=== PATIENT | female | born 1970 | race Caucasian/White ===

== ENCOUNTER 2018-11-26 15:01 | Emergency (ER) | payer OTHER ==
[2018-11-26 15:19] VITALS: BP 148/86; PULSE 76; RESP 18; TEMP 98.7
[2018-11-26] MEDS ORDERED: IBUPROFEN 600 MG TAB PO STA (15:39)
--- NOTE | 2018-11-26 15:46 | ED ---
General Adult HPI - General Chief complaint: Extremity Injury, Lower Stated complaint: Fall/knee pain-[facility] Time Seen by Provider: 11/26/18 15:12 Source: patient, RN notes reviewed Mode of arrival: wheelchair Limitations: no limitations - History of Present Illness Initial comments: 48-year-old female presents to the emergency department for a chief complaint of right knee injury. 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 Patient states she fell and injured her right knee. Patient states it is painful to walk on it difficult to extend. Patient states the pain is mostly in the posterior aspect of the knee as well as the lateral aspect. Patient denies any erythema or fevers. Denies hitting her head or any other injuries.Patient has no other complaints at this time including shortness of breath, chest pain, abdominal pain, nausea or vomiting, headache, or visual changes. - Related Data Home Medications Medication Instructions Recorded Confirmed Budesonide-Formot 160-4.5 Mcg 2 puff INHALATION RT-BID 05/17/15 05/17/15 [Symbicort 160-4.5 Mcg Inhaler] Dextroamphetamine/Amphetamine 30 mg PO BID 05/17/15 05/17/15 [Adderall] HYDROcodone/APAP 7.5-325MG [[place] 1 tab PO TID PRN 05/17/15 05/17/15 7.5-325] Omeprazole [PriLOSEC] 20 mg PO BID 05/17/15 05/17/15 Sertraline [Zoloft] 100 mg PO DAILY 05/17/15 05/17/15 Tiotropium [place] [Spiriva 1 puff INHALATION RT-DAILY 05/17/15 05/17/15 Respimat] Previous Rx's Medication Instructions Recorded ALPRAZolam [Xanax] 0.25 mg PO TID PRN #20 tab 05/20/15 Azithromycin [Zithromax] 500 mg PO DAILY #5 tab 05/20/15 Cefuroxime [Ceftin] 500 mg PO BID #14 tablet 05/20/15 Multivitamins, Thera [Multivitamin 1 each PO DAILY@1200 #30 tab 05/20/15 (formulary)] Nicotine 14Mg/24Hr Patch [Habitrol] 1 patch TRANSDERM DAILY #30 patch 05/20/15 predniSONE 10 mg PO DIRECTED #40 tab 05/20/15 Allergies Allergy/AdvReac Type Severity Reaction Status Date / Time ciprofloxacin [From Cipro] Allergy Unknown Verified 11/26/18 15:19 Review of Systems ROS Statement: Those systems with pertinent positive or pertinent negative responses have been documented in the HPI. ROS Other: All systems not noted in ROS Statement are negative. Past Medical History Past Medical History: Asthma Additional Past Medical History / Comment(s): Obesity, anxiety/depression, bronchial asthma, History of Any Multi-Drug Resistant Organisms: None Reported Past Surgical History: Breast Surgery, Tonsillectomy, Tubal Ligation Additional Past Surgical History / Comment(s): carpal tunnel Past Psychological History: Anxiety, Depression Smoking Status: Current every day smoker Past Alcohol Use History: None Reported Past Drug Use History: None Reported - Past Family History Father Family Medical History: Myocardial Infarction ([place]) General Exam Limitations: no limitations General appearance: alert, in no apparent distress Head exam: Present: atraumatic, normocephalic, normal inspection Eye exam: Present: normal appearance, PERRL, EOMI. Absent: scleral icterus, conjunctival injection, periorbital swelling ENT exam: Present: normal exam, mucous membranes moist Neck exam: Present: normal inspection, full ROM. Absent: tenderness, meningismus, lymphadenopathy Respiratory exam: Present: normal lung sounds bilaterally. Absent: respiratory distress, wheezes, rales, rhonchi, stridor Cardiovascular Exam: Present: regular rate, normal rhythm, normal heart sounds. Absent: systolic murmur, diastolic murmur, rubs, gallop, clicks Extremities exam: Present: tenderness (Generalized tenderness to the right knee), normal capillary refill (Capillary refill less than 2 seconds, DP pulse and PT pulses strong and Doppler), other (sensation is intact the right lower extremity without significant edema erythema or increased warmth. no abrasions, contusions, or lacerations present.). Absent: full ROM (Patient had 90 flexion of the right knee with full extension. Pain reduced with extension.), joint swelling, calf tenderness Neurological exam: Present: alert, oriented X3, CN II-XII intact Psychiatric exam: Present: normal affect, normal mood Course Vital Signs 11/26/18 15:16 Temperature 98.7 F Pulse Rate 76 Respiratory 18 Rate Blood Pressure 148/86 O2 Sat by Pulse 99 Oximetry - Reevaluation(s) Reevaluation #1: 11/26/18 15:44 Ice pack applied to the right knee Medical Decision Making - Medical Decision Making 48-year-old female presents to the emergency department for chief and of right knee pain after a fall earlier today at work. Patient unable to bear weight on the right knee at this time. Neurovascular status intact in the right lower extremity. No severe edema erythema or ecchymosis present. Patient has limited range of motion of the right knee to about 90 flexion with full extension. X- ray of the right knee is negative for fracture or dislocation. No evidence of joint effusion. However patient is unable to bear weight. Unfortunately I was not able to obtain a knee immobilizer as there are none in the emergency department or on any force of the hospital. No knee immobilizers and stores. Therefore patient was wrapped with an Jack wrap and given a prescription for a knee immobilizer and crutches and follow-up to orthopedics. Patient will return here if she has any worsening symptoms. Disposition Clinical Impression: Right knee injury Disposition: HOME SELF-CARE Condition: Good Instructions (If sedation given, give patient instructions): Knee Pain (ED) Additional Instructions: Please take Motrin for pain. If pain is severe take Tylenol 3. Do not drive or operate machinery when taking Tylenol 3. Use knee immobilizer and remain n onweightbearing with crutches until you see orthopedics. Return here to the emergency department if you have any worsening symptoms. Otherwise follow-up with orthopedics in one to 2 days. Is patient prescribed a controlled substance at d/c from ED?: No Referrals: Gustavo Croft DO [Primary Care Provider] - 1-2 days Mariam Grubbs DO [Doctor of Osteopathic Medicine] - 1-2 days Time of Disposition: 16:51
--- NOTE | 2018-11-26 16:18 | XR ---
EXAMINATION TYPE: XR knee complete RT DATE OF EXAM: 11/26/2018 COMPARISON: NONE HISTORY: Pain TECHNIQUE: 3 views FINDINGS: I see no fracture nor dislocation. Joint spaces are normal. There is no evidence of joint e ffusion. IMPRESSION: Normal right knee.
[2018-11-26] MEDS ORDERED: ACET/COD 300 MG/30 MG STARTER PACK 6 TAB BTL PO STA (16:54)
== END 2018-11-26 17:37 | disposition home or self-care (01) ==
LOC: EC 15:01
DX: S89.91XA Unspecified injury of right lower leg, initial encounter (principal); J45.909 Unspecified asthma, uncomplicated; F41.9 Anxiety disorder, unspecified; F32.9 Major depressive disorder, single episode, unspecified; E66.9 Obesity, unspecified; Z68.36 Body mass index [BMI] 36.0-36.9, adult; F17.200 Nicotine dependence, unspecified, uncomplicated; Z79.51 Long term (current) use of inhaled steroids; Z79.899 Other long term (current) drug therapy; Z88.1 Allergy status to other antibiotic agents; W19.XXXA Unspecified fall, initial encounter; Y92.69 Other specified industrial and construction area as the place of occurrence of the external cause; Y99.0 Civilian activity done for income or pay
CPT/HCPCS: 99283

== ENCOUNTER → 2020-10-17 | Outpatient (CLI) | payer BC | END | disposition home or self-care (01) | LOC: RADMAMWWP 14:43 | PROVIDERS: ATTEND Family Medicine | DX: Z53.9 Procedure and treatment not carried out, unspecified reason (principal) ==

== ENCOUNTER → 2020-12-10 | Outpatient (CLI) | payer BC ==
--- NOTE | 2020-12-10 09:25 | MM ---
Reason for exam: clinical finding. Last mammogram was performed 5 years and 4 months ago. History: Benign excisional biopsy of the right breast, May 25, 2006. Reductions of both breasts, August 2003. Took hormonal contraceptives for 7 years beginning at age 17. Indicated problem(s): lump or thickening in the right breast. Physical Findings: Nurse did not find any significant physical abnormalities on exam. MG 3D Diag Mammo W/Cad PEGGY Bilateral CC and MLO view(s) were taken. Prior study comparison: August 26, 2015, bilateral MG screening mammo w CAD. September 05, 2013, mammogram, performed at [place]. The breast tissue is heterogeneously dense. This may lower the sensitivity of mammography. There is chronic nodularity bilaterally. There is no dominant lesion. Changes of reduction mammoplasty. These results were verbally communicated with the patient and result sheet given to the patient on 12/10/20. ASSESSMENT: Benign, BI-RAD 2 RECOMMENDATION: Routine screening mammogram of both breasts in 1 year. Manage patient on a clinical basis.
== END | disposition home or self-care (01) ==
LOC: RADMAMWWP 07:54
PROVIDERS: ATTEND Family Medicine
DX: N63.10 Unspecified lump in the right breast, unspecified quadrant (principal); N63.20 Unspecified lump in the left breast, unspecified quadrant
CPT/HCPCS: 77062; 77066

== ENCOUNTER → 2021-06-15 | Outpatient (CLI) | payer OTHER ==
--- NOTE | 2021-06-15 16:47 | MR ---
EXAMINATION TYPE: MR lumbar spine wo con DATE OF EXAM: 06/15/2021 COMPARISON: None HISTORY: 51-year-old female M54.16, R53.1 LBP, weakness, radiculopathy. TECHNIQUE: Multiplanar, multisequence images of the lumbar spine were acquired without IV contrast. FINDINGS: Moderate degenerative disc disease lower thoracic spine with desiccated, narrowed common bulging disc s. These impress on the ventral thecal sac mildly narrowing the spinal canal. At T10-T11, there is abutment and flattening of the ventral cord but no nehemias cord compression seen. Conus medullaris is normal. Some fatty Modic type II endplate change at T12-L1. Some additional fatty Modic type II endplate pineda ge is clearly at L5-S1. No suspicious bone marrow replacement. Hypertrophic facet arthropathy mid to lower lumbar spine with degenerative trace grade 1 anterolisthe sis L4-L5. Moderate degenerative disc disease mid to lower lumbar spine with desiccated, narrowed, and bulging d iscs. Ligamentum flavum thickening is also present. Vertebral body heights are preserved. At T12-L1, disc bulge with mild narrowing of the spinal canal. There is facet arthropathy towards the left contributing to a moderate neuroforaminal stenosis. At L1-L2, no spinal canal or foraminal stenosis. At L2-L3, mild facet arthropathy. No canal or foraminal stenosis. At L3-L4, disc bulge with facet arthropathy. There is impression on the ventral thecal sac without si gnificant spinal canal stenosis. Changes result in mild right and minimal inferior left neuroforamina l narrowing. At L4-L5, there is diffuse disc bulge with superimposed central disc protrusion. Ligamentum flavum th ickening. Changes result in focal moderate spinal canal stenosis. Mild right neuroforaminal stenosis. At L5-S1, disc bulge with superimposed left paracentral disc extrusion with superior migration of dis c material. This closely approaches the traversing left S1 nerve root. Ligamentum flavum thickening m ay contact the traversing right S1 nerve root. There is mild overall narrowing of spinal canal. No si gnificant neuroforaminal stenosis. No prevertebral paravertebral soft tissue abnormality. IMPRESSION: 1. Moderate degenerative disc disease mid to lower lumbar spine and also in the visualized lower thor acic spine. In the lower thoracic spine, disc bulges contribute to variable mild narrowing of the spi nal canal. No nehemias canal compromise. 2. Along with ligamentum flavum thickening and facet arthropathy, changes at L4-L5 contribute to a mo derate focal spinal canal stenosis. Mild right neuroforaminal stenosis here. 3. At L5-S1, there is disc bulge along with a superimposed small left paracentral disc extrusion with superior migration of disc material. This closely approaches the traversing left S1 nerve root. Liga mentum flavum thickening may contact the traversing right S1 nerve root at this level. Mild overall s quynh canal stenosis here.
== END | disposition home or self-care (01) ==
LOC: RADMRIMAIN 14:42
PROVIDERS: ATTEND Family Medicine
DX: M51.16 Intervertebral disc disorders with radiculopathy, lumbar region (principal); M48.061 Spinal stenosis, lumbar region without neurogenic claudication; M47.26 Other spondylosis with radiculopathy, lumbar region; M99.73 Connective tissue and disc stenosis of intervertebral foramina of lumbar region
CPT/HCPCS: 72148

== ENCOUNTER 2022-03-25 01:58 | Emergency (ER) | payer OTHER ==
[2022-03-25 02:03] VITALS: RESP 16; TEMP 98.1
[2022-03-25] MEDS ORDERED: predniSONE 20 MG TAB PO STA (02:26)
[2022-03-25] MEDS ORDERED: MORPHINE SULFATE 4 MG/ML SYRINGE IM STA (02:26)
[2022-03-25] MEDS ORDERED: KETOROLAC 15 MG/ML 1 ML VIAL IM STA (02:27)
--- NOTE | 2022-03-25 02:30 | ED ---
Back Pain HPI - General Chief Complaint: Back Pain/Injury Stated Complaint: left leg pain Source: patient Limitations: no limitations - History of Present Illness MD Complaint: back pain -: days(s) Place: home Radiation: left leg Severity: severe Quality: burning, aching Consistency: constant Worsens With: sitting upright Context: bending Associated Symptoms: denies other symptoms - Related Data Home Medications Medication Instructions Recorded Confirmed Budesonide-Formot 160-4.5 Mcg 2 puff INHALATION RT-BID 05/17/15 05/17/15 [Symbicort 160-4.5 Mcg Inhaler] Dextroamphetamine/Amphetamine 30 mg PO BID 05/17/15 05/17/15 [Adderall] HYDROcodone/APAP 7.5-325MG [[place] 1 tab PO TID PRN 05/17/15 05/17/15 7.5-325] Omeprazole [PriLOSEC] 20 mg PO BID 05/17/15 05/17/15 Sertraline [Zoloft] 100 mg PO DAILY 05/17/15 05/17/15 Tiotropium [place] [Spiriva 1 puff INHALATION RT-DAILY 05/17/15 05/17/15 Respimat] Previous Rx's Medication Instructions Recorded ALPRAZolam [Xanax] 0.25 mg PO TID PRN #20 tab 05/20/15 Azithromycin [Zithromax] 500 mg PO DAILY #5 tab 05/20/15 Cefuroxime [Ceftin] 500 mg PO BID #14 tablet 05/20/15 Multivitamins, Thera [Multivitamin 1 each PO DAILY@1200 #30 tab 05/20/15 (formulary)] Nicotine 14Mg/24Hr Patch [Habitrol] 1 patch TRANSDERM DAILY #30 patch 05/20/15 predniSONE 10 mg PO DIRECTED #40 tab 05/20/15 Fluconazole [Diflucan] 150 mg PO ONCE #1 tab 03/25/22 predniSONE 60 mg PO DAILY #30 tab 03/25/22 Allergies Allergy/AdvReac Type Severity Reaction Status Date / Time ciprofloxacin [From Cipro] Allergy Unknown Verified 03/25/22 01:59 Review of Systems ROS Statement: Those systems with pertinent positive or pertinent negative responses have been documented in the HPI. ROS Other: All systems not noted in ROS Statement are negative. Constitutional: Denies: fever, chills Respiratory: Denies: cough, dyspnea Cardiovascular: Denies: chest pain Gastrointestinal: Denies: abdominal pain, vomiting, diarrhea, constipation Genitourinary: Denies: dysuria, frequency, hematuria Musculoskeletal: Reports: back pain Skin: Denies: rash Neurological: Reports: paresthesias. Denies: weakness, numbness Past Medical History Past Medical History: Asthma Additional Past Medical History / Comment(s): Obesity, anxiety/depression, bronchial asthma, History of Any Multi-Drug Resistant Organisms: None Reported Past Surgical History: Breast Surgery, Tonsillectomy, Tubal Ligation Additional Past Surgical History / Comment(s): carpal tunnel Past Psychological History: Anxiety, Depression Smoking Status: Current every day smoker Past Alcohol Use History: None Reported Past Drug Use History: Marijuana - Past Family History Father Family Medical History: Myocardial Infarction ([place]) General Exam Limitations: no limitations General appearance: alert, in no apparent distress Head exam: Present: atraumatic Neck exam: Present: full ROM Respiratory exam: Present: normal lung sounds bilaterally. Absent: respiratory distress, wheezes, rales, rhonchi, stridor Cardiovascular Exam: Present: regular rate, normal rhythm, normal heart sounds GI/Abdominal exam: Present: soft. Absent: tenderness, pulsatile mass Extremities exam: Present: normal inspection Back exam: Present: normal inspection, paraspinal tenderness. Absent: vertebral tenderness Neurological exam: Present: alert, reflexes normal. Absent: motor sensory deficit Course Vital Signs 03/25/22 03/25/22 02:00 03:05 Temperature 98.1 F Pulse Rate 78 80 Respiratory 16 16 Rate Blood Pressure 172/69 134/65 O2 Sat by Pulse 98 98 Oximetry Disposition Clinical Impression: Sciatica Disposition: HOME SELF-CARE Condition: Good Instructions (If sedation given, give patient instructions): Sciatica (ED) Prescriptions: Fluconazole [Diflucan] 150 mg PO ONCE #1 tab predniSONE 60 mg PO DAILY #30 tab Is patient prescribed a controlled substance at d/c from ED?: No Referrals: Gustavo Croft DO [Primary Care Provider] - 1-2 days Mariam Grubbs DO [Doctor of Osteopathic Medicine] - 1-2 days
[2022-03-25 03:06] VITALS: BP 134/65; PULSE 80
== END 2022-03-25 03:06 | disposition home or self-care (01) ==
LOC: EC 01:58
DX: M54.30 Sciatica, unspecified side (principal); J45.909 Unspecified asthma, uncomplicated; F17.200 Nicotine dependence, unspecified, uncomplicated; Z82.49 Family history of ischemic heart disease and other diseases of the circulatory system; Z88.8 Allergy status to other drugs, medicaments and biological substances
CPT/HCPCS: 99283; 96372; J2270; J1885; J7512

== ENCOUNTER → 2022-04-13 | Outpatient (CLI) | payer OTHER ==
[2022-04-13 14:46] LABS: Basophils # (A) 0.03 X 10*3/uL (0.00-0.10); Basophils % (A) 0.4 %; Eosinophils # (A) 0.14 X 10*3/uL (0.04-0.35); Eosinophils % (A) 1.7 %; HCT 40.1 % (37.2-46.3); HGB 12.4 g/dL (12.0-15.0); Immature Grans, Automated 0.7 %; Lymphocytes # (A) 1.58 X 10*3/uL (0.90-5.00); Lymphocytes % (A) 19.3 %; MCH 26.6 pg (27.0-32.0); MCHC 30.9 g/dL (32.0-37.0); MCV 86.1 fL (80.0-97.0); Mean Platelet Volume 9.8 fL (9.5-12.2); Monocytes # (A) 0.64 X 10*3/uL (0.20-1.00); Monocytes % (A) 7.8 %; NRBC Per 100 WBC 0 /100 WBCS (0.0-0.0); Neutrophils # (A) 5.73 X 10*3/uL (1.80-7.70); Neutrophils % (A) 70.1 %; Platelet Count 301 X 10*3/uL (140-440); RBC 4.66 X 10*6/uL (4.10-5.20); RDW 16.9 % (11.5-14.5); WBC 8.18 X 10*3/uL (4.50-10.00)
[2022-04-13 15:59] LABS: ALT 16 U/L (8-44); AST 16 U/L (13-35); African American GFR (CKD) 90.8 (60.0-200.0); Albumin 3.8 g/dL (3.8-4.9); Albumin/Globulin Ratio 1.86 (1.60-3.17); Alkaline Phosphatase 91 U/L (41-126); BUN/Creat Ratio 15.63 Ratio (12.00-20.00); Blood Urea Nitrogen 13.5 mg/dL (9.0-27.0); Calcium 9.1 mg/dL (8.7-10.3); Carbon Dioxide 26.7 mmol/L (20.0-27.5); Chloride 106 mmol/L (96-109); Globulin 2.1 g/dL (1.6-3.3); Glucose 110 mg/dL (70-110); Non-African American GFR(CKD) 78.3 (60.0-200.0); Potassium 4.7 mmol/L (3.5-5.5); Sodium 142 mmol/L (135-145); Total Bilirubin <0.15 mg/dL (0.30-1.20); Total Protein 5.9 g/dL (6.2-8.2)
== END | disposition home or self-care (01) ==
LOC: LABWHC1 09:49
PROVIDERS: ATTEND Nurse Practitioner Family
DX: D64.9 Anemia, unspecified (principal); R25.2 Cramp and spasm
CPT/HCPCS: 36415; 80053; 85025